=== PATIENT | female | born 1995 | race Caucasian/White ===

== ENCOUNTER 2022-10-04 08:00 | Outpatient (CLI) | payer OTHER ==
[2022-10-04 22:58] LABS: BACTERIAL VAGINOSIS DNA NEGATIVE (NEGATIVE); CANDIDA GLABRATA DNA NEGATIVE (NEGATIVE); CANDIDA GROUP DNA NEGATIVE (NEGATIVE); CANDIDA KRUSEI DNA NEGATIVE (NEGATIVE); TRICHOMONAS VAGINALIS DNA NEGATIVE (NEGATIVE)
== END 2022-10-04 23:59 | disposition home or self-care (01) ==
LOC: LAB 08:00
PROVIDERS: ATTEND Obstetrics & Gynecology
DX: N89.8 Other specified noninflammatory disorders of vagina (principal)
CPT/HCPCS: 81514

== ENCOUNTER 2023-01-08 08:00 | Outpatient (CLI) | payer OTHER | END 2023-01-08 23:59 | disposition home or self-care (01) | LOC: LAB.S 08:00 | PROVIDERS: ATTEND Nurse Practitioner | DX: L98.9 Disorder of the skin and subcutaneous tissue, unspecified (principal) | CPT/HCPCS: 87252 ==

== ENCOUNTER 2023-06-27 13:27 | Outpatient (CLI) | payer OTHER ==
--- NOTE | 2023-06-27 16:13 | Ultrasound Report ---
PROCEDURE: Pelvic w/Transvaginal INDICATIONS: HX OF OVARIAN CYST TECHNIQUE: Real-time scanning was performed of the pelvic organs, with image documentation. Additional endovagi nal scanning was necessary due to incomplete visualization of the adnexal and endometrial structures by transabdominal scanning. COMPARISON: None. FINDINGS: Uterus: Uterus is anteverted and normal in size at 6.4 x 2.5 x 3.2 cm. The myometrium is heterogene ous. A 1 x 1.4 x 1.2 cm subserosal fibroid in anterior myometrium near midline is seen. The endometr ium measures 2 mm in combined thickness. No endometrial mass or fluid is seen. Nabothian cysts are n oted in endocervical canal. Ovaries: The right ovary measures 1.6 x 1.3 x 1.5 cm, with a calculated ovarian volume of 1.7 cc. T he left ovary measures 2.2 x 2.2 x 1.7 cm, with a calculated ovarian volume of 4.3 cc. Dominant folli levon is seen in left ovary measures 9 x 8 x 14 mm in size. Less than 12 follicles can be seen in each ovary. No adnexal masses are seen. No cystic lesions measuring greater than 3 cm. Other: No pathologic free abdominal or pelvic fluid. IMPRESSION: 1. Single small uterine fibroid and heterogeneous myometrium as described above. No endometrial mass or fluid. Small nabothian cysts in the endocervical canal. 2. Dominant follicle in left ovary. Otherwise normal-appearing bilateral ovaries. No adnexal mass. Reviewed by: Kamaljit Ceron MD on 06/27/2023 4:12 PM PST Approved by: Kamaljit Ceron MD on 06/27/2023 4:12 PM PST Station ID: [id number]
== END 2023-06-27 13:28 | disposition home or self-care (01) ==
LOC: DI 13:27
PROVIDERS: ATTEND Physician Assistant Medical
DX: Z87.42 Personal history of other diseases of the female genital tract (principal); D25.2 Subserosal leiomyoma of uterus; N88.8 Other specified noninflammatory disorders of cervix uteri